=== PATIENT | male | born 1930 | race Caucasian/White ===

== ENCOUNTER → 2016-02-26 | Outpatient (REF) | payer MEDICARE, BC | LOC: M LAB REF 15:59 | PROVIDERS: ATTEND Emergency Medicine | DX: R19.7 Diarrhea, unspecified (principal) ==

== ENCOUNTER → 2016-03-05 | Outpatient (REF) | payer MEDICARE, BC ==
[2016-03-05 11:43] LABS: BASO % 0.4 % (0.0-1.0); EOS # 0.2 K/mm3 (0.0-0.50); EOS % 3.2 % (0.0-3.0); LARGE UNSTAINED CELL # 0.2 K/mm3 (0.0-0.4); LARGE UNSTAINED CELL % 2.9 % (0.0-4.0); LYMPH # 1.3 K/mm3 (1.5-4.5); LYMPH % 21.3 % (24.0-44.0); MEAN CORPUSCULAR VOLUME 94.2 fl (80.0-96.0); MONO # 0.4 K/mm3 (0.0-0.8); MONO % 6.4 % (0.0-5.0); NEUTROPHILS # 3.9 K/mm3 (1.8-7.7); NEUTROPHILS % 65.8 % (36.0-66.0); PLATELET COUNT, AUTOMATED 178 k/mm3 (150-450); RED CELL DISTRIBUTION WIDTH 13.4 % (11.5-14.5); WHITE BLOOD COUNT 5.9 K/mm3 (4.0-10.0)
[2016-03-05 12:19] LABS: ALBUMIN 3.4 GM/DL (3.2-5.2); ALBUMIN/GLOBULIN RATIO 1.17 (1.00-1.93); ALKALINE PHOSPHATASE 90 U/L (45-117); ALT/SGPT 35 U/L (12-78); ANION GAP 11 MEQ/L (8-16); AST/SGOT 26 U/L (15-37); BILIRUBIN,TOTAL 0.3 MG/DL (0.2-1.0); BLOOD UREA NITROGEN 29 MG/DL (7-18); CALCIUM LEVEL 8.6 MG/DL (8.8-10.2); CARBON DIOXIDE LEVEL 22 MEQ/L (21-32); CHLORIDE LEVEL 113 MEQ/L (98-107); CREATININE FOR GFR 1.74 MG/DL (0.70-1.30); GLOMERULAR FILTRATION RATE 39.8 (>35); GLUCOSE, FASTING 120 MG/DL (83-110); POTASSIUM SERUM 4.3 MEQ/L (3.5-5.1); SODIUM LEVEL 146 MEQ/L (136-145); TOTAL PROTEIN 6.3 GM/DL (6.4-8.2)
[2016-03-05 15:20] LABS: PERCENT SATURATION 44.4 % (19.7-37.4); TOTAL IRON BINDING CAPACITY 205 UG/DL (250-450)
[2016-03-05 16:01] LABS: FOLATE > 24.0 NG/ML; VITAMIN B12 LEVEL 293 PG/ML
== END ==
LOC: M SFHCPLAZ 10:17
PROVIDERS: ATTEND Internal Medicine Infectious Disease
DX: D64.9 Anemia, unspecified (principal); A04.7 Enterocolitis due to Clostridium difficile
CPT/HCPCS: 36415; 80053; 82607; 82746; 83550; 85025; 86140; G0463

== ENCOUNTER → 2016-04-10 | Outpatient (REF) | payer MEDICARE, BC | LOC: M LAB REF 18:33 | PROVIDERS: ATTEND Internal Medicine Infectious Disease | DX: A04.7 Enterocolitis due to Clostridium difficile (principal) | CPT/HCPCS: 87493; G0463 ==

== ENCOUNTER → 2016-04-14 | Outpatient (REF) | payer MEDICARE, BC | LOC: M SFHCPLAZ 15:04 | PROVIDERS: ATTEND Internal Medicine Infectious Disease | DX: A04.7 Enterocolitis due to Clostridium difficile (principal) ==

== ENCOUNTER → 2016-04-22 | Outpatient (REF) | payer MEDICARE, BC ==
[2016-04-22 12:22] LABS: ALBUMIN 3.5 GM/DL (3.2-5.2); ALBUMIN/GLOBULIN RATIO 1.21 (1.00-1.93); BILIRUBIN,TOTAL 0.5 MG/DL (0.2-1.0); CALCIUM LEVEL 8.4 MG/DL (8.8-10.2); CREATININE FOR GFR 1.56 MG/DL (0.70-1.30); FREE T4 1.18 NG/DL (0.76-1.46); GLOMERULAR FILTRATION RATE 45.1 (>35); POTASSIUM SERUM 4.2 MEQ/L (3.5-5.1); TOTAL PROTEIN 6.4 GM/DL (6.4-8.2)
== END ==
LOC: M LABDRAW1 11:31
PROVIDERS: ATTEND Emergency Medicine
DX: E03.9 Hypothyroidism, unspecified (principal); E78.2 Mixed hyperlipidemia

== ENCOUNTER → 2016-05-12 | Outpatient (REF) | payer MEDICARE, BC | LOC: M SFHCPLAZ 14:08 | PROVIDERS: ATTEND Internal Medicine Infectious Disease | DX: A04.7 Enterocolitis due to Clostridium difficile (principal) ==

== ENCOUNTER → 2016-06-11 | Outpatient (CLI) | payer MEDICARE, BC ==
[~2016-06-11] VITALS: Ht 172.7 cm; Wt 75.7 kg
[~2016-06-11] MED LIST: ASPI1TAB PO; CALC1CAP31 PO; FECAL MICROBIOTA PREPARATION 250 ML BTL (J3590) XX ONE; FINA5TAB2 PO; FLOM5CAP PO; GERITAB9 PO; LEVO75TA4 PO; LIDOCAINE 2% INJ 100 MG/5 ML SDV (FOR ANES.) As Ordered ONE; META58.6 PO; METO-207 PO; METO50TA2 PO; NITR4TASL SL; NS 1,000 ML IV SCH; OMEG100011 PO; OMEP20CA3 PO; PROPOFOL 200 MG/20 ML VIAL As Ordered ONE; SIMV40TA2 PO; VANC250C2 PO
--- NOTE | 2016-06-11 10:16 | ROOR ---
Patient Name: Gerardo King Procedure Date: 06/11/2016 9:52 AM Date of : 1930 Age: 86 Room: [facility] Gender: Male Note Status: Finalized Procedure: Colonoscopy to Cecum + Fecal Stool Transplant Indications: Fecal transplant for treatment of Clostridium difficile diarrhea Providers: Jona Osman MD Referring MD: ERASTO CUEVA MD Requesting Provider: Medicines: Monitored Anesthesia Care Complications: No immediate complications. Procedure: Pre-Anesthesia Assessment: - The heart rate, respiratory rate, oxygen saturations, blood pressure, adequacy of pulmonary ventilation, and response to care were monitored throughout the procedure. The Colonoscope was introduced through the anus and advanced to the cecum, identified by appendiceal orifice and ileocecal valve. The colonoscopy was performed without difficulty. The patient tolerated the procedure well. The quality of the bowel preparation was excellent. Findings: The perianal and digital rectal examinations were normal. Non-bleeding internal hemorrhoids were found during retroflexion. The hemorrhoids were small and Grade I (internal hemorrhoids that do not prolapse). Scattered small-mouthed diverticula were found in the recto-sigmoid colon, sigmoid colon and descending colon. The exam was otherwise without abnormality on direct and retroflexion views. Fecal Microbiota Transplant (Bacteriotherapy): Donor stool was prepared as per protocol. Approximately 250 mL of the emulsified donor stool was instilled in the cecum. A detailed colonoscopic exam could not be performed upon scope withdrawal secondary to limited visibility from the instilled stool. The exam was otherwise without abnormality on direct and retroflexion views. Impression: - Non-bleeding internal hemorrhoids. - Diverticulosis in the recto-sigmoid colon, in the sigmoid colon and in the descending colon. - The examination was otherwise normal on direct and retroflexion views. - The examination was otherwise normal on direct and retroflexion views. - Fecal Microbiota Transplant (Bacteriotherapy) performed in the cecum. - No specimens collected. - The exam was otherwise normal to the cecum. Recommendation: - Patient has a contact number available for emergencies. The signs and symptoms of potential delayed complications were discussed with the patient. Return to normal activities tomorrow. Written discharge instructions were provided to the patient. - Resume previous diet. - Continue present medications. - Return to referring physician. - The findings and recommendations were discussed with the patient's family. Jona Osman MD Jona Osman MD 06/11/2016 10:15:54 AM This report has been signed electronically. Number of Addenda: 0 Note Initiated On: 06/11/2016 9:52 AM Estimated Blood Loss: Estimated blood loss: none.
[2016-06-11 10:31] VITALS: BP 138/65
== END | disposition home or self-care (01) ==
LOC: M OPP 07:47
PROVIDERS: ATTEND Internal Medicine Gastroenterology
DX: A04.7 Enterocolitis due to Clostridium difficile (principal); K64.0 First degree hemorrhoids; K57.30 Diverticulosis of large intestine without perforation or abscess without bleeding; I25.10 Atherosclerotic heart disease of native coronary artery without angina pectoris; I10 Essential (primary) hypertension; K21.9 Gastro-esophageal reflux disease without esophagitis; L40.9 Psoriasis, unspecified; G47.30 Sleep apnea, unspecified; Z79.899 Other long term (current) drug therapy; Z79.82 Long term (current) use of aspirin; Z95.5 Presence of coronary angioplasty implant and graft
CPT/HCPCS: 45378; 99156; G0455

== ENCOUNTER → 2016-10-30 | Outpatient (REF) | payer MEDICARE, BC ==
[~2016-10-30] MED LIST changes: -FECAL MICROBIOTA PREPARATION 250 ML BTL (J3590) XX ONE; -LIDOCAINE 2% INJ 100 MG/5 ML SDV (FOR ANES.) As Ordered ONE; -METO-207 PO; +METO1TAB7 PO; -METO50TA2 PO; +METO50TA7 PO; -NS 1,000 ML IV SCH; -PROPOFOL 200 MG/20 ML VIAL As Ordered ONE
[2016-10-30 09:24] LABS: BASO % 0.7 % (0.0-1.0); EOS % 4.1 % (0.0-3.0); LARGE UNSTAINED CELL % 2.6 % (0.0-4.0); MEAN CORPUSCULAR HEMOGLOBIN 32.8 pg (27.0-33.0); MEAN CORPUSCULAR HGB CONC 34.7 g/dl (32.0-36.5); MEAN CORPUSCULAR VOLUME 94.6 fl (80.0-96.0); MONO % 7.5 % (0.0-5.0); PLATELET COUNT, AUTOMATED 183 k/mm3 (150-450); RED CELL DISTRIBUTION WIDTH 13.2 % (11.5-14.5); WHITE BLOOD COUNT 5.6 K/mm3 (4.0-10.0)
[2016-10-30 09:25] LABS: EOS # 0.2 K/mm3 (0.0-0.50); LARGE UNSTAINED CELL # 0.2 K/mm3 (0.0-0.4); LYMPH # 1.4 K/mm3 (1.5-4.5); MONO # 0.4 K/mm3 (0.0-0.8); NEUTROPHILS # 3.4 K/mm3 (1.8-7.7)
[2016-10-30 12:14] LABS: BILIRUBIN,TOTAL 0.6 MG/DL (0.2-1.0); CALCIUM LEVEL 9.1 MG/DL (8.8-10.2); CREATININE FOR GFR 1.87 MG/DL (0.70-1.30); GLOMERULAR FILTRATION RATE 36.6 (>35); POTASSIUM SERUM 4.3 MEQ/L (3.5-5.1)
[2016-10-30 12:15] LABS: ALBUMIN 3.5 GM/DL (3.2-5.2); ALBUMIN/GLOBULIN RATIO 1.09 (1.00-1.93); FREE T4 1.37 NG/DL (0.76-1.46); TOTAL PROTEIN 6.7 GM/DL (6.4-8.2)
== END ==
LOC: M LABDRAW1 08:20
PROVIDERS: ATTEND Emergency Medicine
DX: E78.2 Mixed hyperlipidemia (principal); E03.9 Hypothyroidism, unspecified; E55.9 Vitamin D deficiency, unspecified; D64.9 Anemia, unspecified

== ENCOUNTER → 2017-06-26 | Outpatient (REF) | payer MEDICARE, BC ==
[2017-06-29 14:28] LABS: TOTAL PROTEIN 7.2 GM/DL (6.4-8.2)
[2017-07-01 11:21] LABS: ALBUMIN 4.16 GM/DL (3.29-5.55); ALBUMIN % 57.8 % (55.8-66.1); ALPHA-1-GLOBULIN % 3.8 % (2.9-4.9); ALPHA-1-GLOBULINS 0.27 GM/DL (0.17-0.41); ALPHA-2-GLOBULINS 1.03 GM/DL (0.42-0.99); ALPHA-2-GLOBULINS % 14.3 % (7.1-11.8); BETA-1-GLOBULINS 0.39 GM/DL (0.28-0.60); BETA-1-GLOBULINS % 5.4 % (4.7-7.2); BETA-2-GLOBULINS 0.42 GM/DL (0.19-0.55); BETA-2-GLOBULINS % 5.8 % (3.2-6.5); GAMMA GLOBULIN % 12.9 % (11.1-18.8); GAMMA GLOBULINS 0.93 GM/DL (0.65-1.58)
== END ==
LOC: M LAB REF 13:33
DX: N18.9 Chronic kidney disease, unspecified (principal); D63.1 Anemia in chronic kidney disease
CPT/HCPCS: 84165

== ENCOUNTER 2017-07-10 19:20 | Emergency (ER) | payer MEDICARE, BC ==
[2017-07-10] MEDS: ACETAMINOPH W/CODEINE #3 TAB UD PO (23:56)
== END 2017-07-10 23:55 | disposition home or self-care (01) ==
LOC: M ED 23:55
DX: S22.31XA Fracture of one rib, right side, initial encounter for closed fracture (principal); W19.XXXA Unspecified fall, initial encounter; Y92.9 Unspecified place or not applicable; Y93.9 Activity, unspecified; Y99.9 Unspecified external cause status; I10 Essential (primary) hypertension; E03.9 Hypothyroidism, unspecified; Z79.82 Long term (current) use of aspirin; Z79.899 Other long term (current) drug therapy
CPT/HCPCS: 71101

== ENCOUNTER → 2017-07-21 | Outpatient (CLI) | payer MEDICARE, BC | LOC: M ADAMS 11:35 | DX: S20.221A Contusion of right back wall of thorax, initial encounter (principal); X58.XXXA Exposure to other specified factors, initial encounter; Y92.89 Other specified places as the place of occurrence of the external cause; Y93.9 Activity, unspecified; Y99.9 Unspecified external cause status | CPT/HCPCS: 71101 ==

== ENCOUNTER → 2017-10-11 | Outpatient (CLI) | payer MEDICARE, BC | LOC: M ADAMS 13:37 | DX: M25.511 Pain in right shoulder (principal) | CPT/HCPCS: 73010 ==

== ENCOUNTER 2018-02-01 14:28 | Emergency (ER) | payer MEDICARE, BC ==
[~2018-02-01] VITALS: Ht 172.7 cm; Wt 72.7 kg
[~2018-02-01 14:28] MED LIST changes: +ACET30TAB PO; +FLOM0.4C39 PO; -FLOM5CAP PO
[2018-02-01] MEDS ORDERED: LIDOCAINE 2% MDV 20 ML VIAL SC ONE (15:15)
[2018-02-01] MEDS ORDERED: KEFL500C17 PO (16:03)
[2018-02-01 16:11] VITALS: BP 140/66
== END 2018-02-01 16:14 | disposition home or self-care (01) ==
LOC: M ED 14:28
DX: S00.83XA Contusion of other part of head, initial encounter (principal); W22.8XXA Striking against or struck by other objects, initial encounter

== ENCOUNTER 2018-02-21 06:44 | Emergency (ER) | payer MEDICARE, BC ==
[~2018-02-21] VITALS: Ht 172.7 cm; Wt 74.9 kg
[~2018-02-21 06:44] MED LIST changes: +KEFL500C17 PO
[2018-02-21] MEDS ORDERED: META48.54 PO (07:11)
[2018-02-21 07:44] LABS: BASO # 0.1 10^3/uL (0.0-0.2); BASO % 0.7 % (0.0-1.0); EOS # 0.3 10^3/uL (0.0-0.50); EOS % 4.4 % (0.0-3.0); HEMATOCRIT 37.4 % (42.0-52.0); HEMOGLOBIN 12.6 g/dl (13.5-17.5); LYMPH # 1.7 10^3/uL (1.5-4.5); LYMPH % 22.1 % (24.0-44.0); MEAN CORPUSCULAR HEMOGLOBIN 32.6 pg (27.0-33.0); MEAN CORPUSCULAR HGB CONC 33.7 g/dl (32.0-36.5); MEAN CORPUSCULAR VOLUME 96.6 fl (80.0-96.0); MONO # 0.7 10^3/uL (0.0-0.8); MONO % 9.2 % (0.0-5.0); NEUTROPHILS # 4.9 10^3/uL (1.8-7.7); NEUTROPHILS % 63.2 % (36.0-66.0); PLATELET COUNT, AUTOMATED 197 10^3/uL (150-450); RED BLOOD COUNT 3.87 10^6/uL (4.30-6.10); WHITE BLOOD COUNT 7.7 10^3/uL (4.0-10.0)
[2018-02-21] MEDS ORDERED: MECLIZINE 25 MG TABLET PO ONE (07:45)
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
[2018-02-21 07:56] LABS: BLOOD UREA NITROGEN 31 MG/DL (7-18); CALCIUM LEVEL 8.8 MG/DL (8.8-10.2); CARBON DIOXIDE LEVEL 23 MEQ/L (21-32); CHLORIDE LEVEL 110 MEQ/L (98-107); CPK CREATINE PHOSPHOKINASE 84 U/L (39-308); CREATININE FOR GFR 1.87 MG/DL (0.70-1.30); GLOMERULAR FILTRATION RATE 36.5 (>35); GLUCOSE, FASTING 119 MG/DL (70-100); MB/CK RELATIVE INDEX 2.02 (< OR =4); SODIUM LEVEL 142 MEQ/L (136-145); TROPONIN I < 0.02 NG/ML (< 0.10)
[2018-02-21] MEDS ORDERED: METOPROLOL SUCC (TopROL XL) 50MG **XL** TAB PO ONE (08:00)
[2018-02-21] MEDS ORDERED: ASPIRIN 81 MG CHEW TABLET PO ONE (08:00)
[2018-02-21 08:06] LABS: INR 1.03; PROTHROMBIN TIME 13.6 SECONDS (12.1-14.4)
[2018-02-21 08:07] LABS: PARTIAL THROMBOPLASTIN TIME 34.2 SECONDS (25.4-37.6)
--- NOTE | 2018-02-21 08:29 | REP ---
Clinical: Altered mental status. Cerebrovascular accident . Comparison: 07/21/2017 . Findings: The mediastinum and cardiac silhouette are stable and within normal limits for portable technique. The lung still demonstrate chronic stable changes without acute consolidation, effusion, or pneumothorax. Skeletal structures are intact. Impression: No acute cardiopulmonary process appreciated. Electronically Signed by Roque Irvin MD 02/21/2018 08:20 A
--- NOTE | 2018-02-21 10:41 | REP ---
Clinical: Possible cerebellar infarction. Technique: Standard noncontrast MRI of the brain sequencing. Findings: Age-related atrophy and microvascular ischemic changes including periventricular leukomalacia as evidenced by increase signal intensity foci on T2-weighted sequences in the periventricular and scattered white matter distribution. No evidence for acute intracranial hemorrhage, mass/mass effect, or infarction. No extra-axial collection. Ventricles are symmetric and normal. Orbits are unremarkable. Sinuses are within normal limits. Impression: Atrophy and microvascular ischemic changes. No evidence for acute intracranial process. No obvious acute infarction. Electronically Signed by Roque Irvin MD 02/21/2018 10:32 A
--- NOTE | 2018-02-21 10:42 | REP ---
Clinical: Possible cerebellar infarction Comparison: None Technique: Axial 3-D [id number] noncontrast source images with 3-D multiplanar re-formations. Findings: Vasculature to the bilateral hemispheres including posterior fossa and cerebellum appears symmetric and normal without areas of attenuation to suggest occlusion or stenosis. No evidence for arteriovenous malformation or aneurysm. No obvious abnormality. Impression: Essentially normal MRA of the brain. Electronically Signed by Roque Irvin MD 02/21/2018 10:34 A
[2018-02-21 11:00] VITALS: BP 151/62
[2018-02-21] MEDS ORDERED: MECL-68 PO (11:02)
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
== END 2018-02-21 11:27 | disposition home or self-care (01) ==
LOC: M ED 06:44
DX: H83.09 Labyrinthitis, unspecified ear (principal); N18.3 Chronic kidney disease, stage 3 (moderate); M06.9 Rheumatoid arthritis, unspecified; I13.10 Hypertensive heart and chronic kidney disease without heart failure, with stage 1 through stage 4 chronic kidney disease, or unspecified chronic kidney disease; I25.10 Atherosclerotic heart disease of native coronary artery without angina pectoris; E78.5 Hyperlipidemia, unspecified; K21.9 Gastro-esophageal reflux disease without esophagitis; N40.0 Benign prostatic hyperplasia without lower urinary tract symptoms; G47.33 Obstructive sleep apnea (adult) (pediatric); Z86.19 Personal history of other infectious and parasitic diseases; E07.9 Disorder of thyroid, unspecified; Z95.5 Presence of coronary angioplasty implant and graft; Z79.899 Other long term (current) drug therapy; Z79.82 Long term (current) use of aspirin

== ENCOUNTER → 2018-03-22 | Outpatient (REF) | payer MEDICARE, BC ==
[~2018-03-22] MED LIST changes: +MECL-68 PO; +META48.54 PO
[2018-03-22 16:57] LABS: FREE T4 1.19 NG/DL (0.76-1.46); THYROID STIMULATING HORMONE 2.11 uIU/ML (0.358-3.740); TOTAL 25(OH) VITAMIN D 33.5 NG/ML (30.0-100.0)
[2018-03-22 16:58] LABS: FOLATE 20.3 NG/ML
== END ==
LOC: M LABDRAW1 15:32
PROVIDERS: ATTEND Family Medicine
DX: E55.9 Vitamin D deficiency, unspecified (principal); D64.9 Anemia, unspecified

== ENCOUNTER → 2018-08-23 | Outpatient (CLI) | payer MEDICARE, BC ==
[~2018-08-23] MED LIST changes: +ACET-716 PO; -ACET30TAB PO; -ASPI1TAB PO; +ASPI81TA26 PO; -MECL-68 PO; +MECL1TAB31 PO; +OMEP1CAP73 PO; -OMEP20CA3 PO; -SIMV40TA2 PO; +SIMV40TA20 PO; -VANC250C2 PO; +VANC250C3 PO
--- NOTE | 2018-08-23 12:47 | REP ---
Clinical: Acute upper respiratory tract infection. Technique: PA and lateral. Comparison: 02/21/2018, 05/29/2011. Findings: Mediastinum and cardiac silhouette are within normal limits and stable. Lung still demonstrate chronic interstitial changes along with scattered calcified granulomata. No consolidation. No effusions. No pneumothorax. Skeletal structures demonstrate osteopenia and degenerative changes. Impression: Chronic stable changes including scattered calcified granulomata similar to prior examinations. No obvious acute consolidation or effusion. Electronically Signed by Roque Irvin MD 08/23/2018 12:39 P
== END ==
LOC: M SMT 12:00
PROVIDERS: ATTEND Family Medicine
DX: J06.9 Acute upper respiratory infection, unspecified (principal); J84.10 Pulmonary fibrosis, unspecified; M85.80 Other specified disorders of bone density and structure, unspecified site; M19.90 Unspecified osteoarthritis, unspecified site

== ENCOUNTER → 2018-10-18 | Outpatient (REF) | payer MEDICARE, BC ==
[~2018-10-18] MED LIST changes: +MECL-68 PO; -MECL1TAB31 PO; -OMEP1CAP73 PO; +OMEP20CA4 PO; +SIMV40TA2 PO; -SIMV40TA20 PO
[2018-10-18 11:59] LABS: BASO % 0.6 % (0.0-1.0); EOS # 0.4 10^3/uL (0.0-0.50); EOS % 6.4 % (0.0-3.0); HEMATOCRIT 34.2 % (42.0-52.0); HEMOGLOBIN 11.3 g/dl (13.5-17.5); LYMPH # 1.5 10^3/uL (1.5-4.5); LYMPH % 22.9 % (24.0-44.0); MEAN CORPUSCULAR HEMOGLOBIN 32.8 pg (27.0-33.0); MEAN CORPUSCULAR VOLUME 99.1 fl (80.0-96.0); MONO # 0.6 10^3/uL (0.0-0.8); NEUTROPHILS # 3.9 10^3/uL (1.8-7.7); NEUTROPHILS % 60.8 % (36.0-66.0); PLATELET COUNT, AUTOMATED 171 10^3/uL (150-450); RED BLOOD COUNT 3.45 10^6/uL (4.30-6.10); WHITE BLOOD COUNT 6.5 10^3/uL (4.0-10.0)
[2018-10-18 12:07] LABS: ALBUMIN 3.4 GM/DL (3.2-5.2); BILIRUBIN,TOTAL 0.4 MG/DL (0.2-1.0); CALCIUM LEVEL 9.1 MG/DL (8.8-10.2); CREATININE FOR GFR 1.8 MG/DL (0.70-1.30); FREE T4 1.31 NG/DL (0.76-1.46); GLOMERULAR FILTRATION RATE 38.1 (>35); POTASSIUM SERUM 4.3 MEQ/L (3.5-5.1); THYROID STIMULATING HORMONE 3.09 uIU/ML (0.358-3.740); TOTAL PROTEIN 6.8 GM/DL (6.4-8.2)
== END ==
LOC: M LABDRAW1 11:30
PROVIDERS: ATTEND Physician Assistant
DX: K21.9 Gastro-esophageal reflux disease without esophagitis (principal); E78.2 Mixed hyperlipidemia; E03.9 Hypothyroidism, unspecified

== ENCOUNTER → 2019-04-25 | Outpatient (REF) | payer MEDICARE, BC ==
[~2019-04-25] MED LIST changes: -MECL-68 PO; +MECL1TAB31 PO; +OMEP1CAP73 PO; -OMEP20CA4 PO; -SIMV40TA2 PO; +SIMV40TA20 PO
[2019-04-25 11:27] LABS: BASO % 0.7 % (0.0-1.0); EOS # 0.3 10^3/uL (0.0-0.5); EOS % 5.4 % (0.0-3.0); HEMOGLOBIN 11.5 g/dl (13.5-17.5); LYMPH # 1.5 10^3/uL (1.5-5.0); LYMPH % 23.8 % (24.0-44.0); MEAN CORPUSCULAR HEMOGLOBIN 31.9 pg (27.0-33.0); MEAN CORPUSCULAR HGB CONC 32.9 g/dl (32.0-36.5); MEAN CORPUSCULAR VOLUME 97.2 fl (80.0-96.0); MONO # 0.6 10^3/uL (0.0-0.8); MONO % 9.5 % (0.0-5.0); NEUTROPHILS # 3.7 10^3/uL (1.5-8.5); NEUTROPHILS % 60.3 % (36.0-66.0); PLATELET COUNT, AUTOMATED 185 10^3/uL (150-450); WHITE BLOOD COUNT 6.1 10^3/uL (4.0-10.0)
[2019-04-25 11:54] LABS: ALBUMIN 3.6 GM/DL (3.2-5.2); BILIRUBIN,TOTAL 0.4 MG/DL (0.2-1.0); CHOLESTEROL RISK RATIO 3.6 (<5); CREATININE FOR GFR 1.8 MG/DL (0.70-1.30); POTASSIUM SERUM 4.1 MEQ/L (3.5-5.1); TOTAL PROTEIN 6.8 GM/DL (6.4-8.2)
[2019-04-26 14:17] LABS: PSA TOTAL 0.1 ng/mL (0.0-4.0)
== END ==
LOC: M LABDRAW1 08:43
PROVIDERS: ATTEND Family Medicine
DX: I25.10 Atherosclerotic heart disease of native coronary artery without angina pectoris (principal); E03.9 Hypothyroidism, unspecified; N18.3 Chronic kidney disease, stage 3 (moderate); N40.0 Benign prostatic hyperplasia without lower urinary tract symptoms

== ENCOUNTER → 2019-07-29 | Outpatient (CLI) | payer MEDICARE, BC ==
[2019-07-29 09:41] LABS: BASO # 0.1 10^3/uL (0.0-0.2); BASO % 0.9 % (0.0-1.0); EOS # 0.3 10^3/uL (0.0-0.5); EOS % 4.8 % (0.0-3.0); HEMATOCRIT 34.3 % (42.0-52.0); HEMOGLOBIN 11.6 g/dl (13.5-17.5); LYMPH # 1.8 10^3/uL (1.5-5.0); LYMPH % 27.8 % (24.0-44.0); MEAN CORPUSCULAR HEMOGLOBIN 32.9 pg (27.0-33.0); MEAN CORPUSCULAR HGB CONC 33.8 g/dl (32.0-36.5); MEAN CORPUSCULAR VOLUME 97.2 fl (80.0-96.0); MONO # 0.7 10^3/uL (0.0-0.8); MONO % 11.3 % (0.0-5.0); NEUTROPHILS # 3.5 10^3/uL (1.5-8.5); NEUTROPHILS % 54.9 % (36.0-66.0); PLATELET COUNT, AUTOMATED 218 10^3/uL (150-450); RED BLOOD COUNT 3.53 10^6/uL (4.30-6.10); WHITE BLOOD COUNT 6.4 10^3/uL (4.0-10.0)
[2019-07-29 10:16] LABS: ALBUMIN 3.3 GM/DL (3.2-5.2); BILIRUBIN,TOTAL 0.3 MG/DL (0.2-1.0); CALCIUM LEVEL 8.9 MG/DL (8.8-10.2); CHOLESTEROL RISK RATIO 3.25 (<5); CREATININE FOR GFR 1.93 MG/DL (0.70-1.30); FREE T4 1.27 NG/DL (0.76-1.46); GLOMERULAR FILTRATION RATE 35.1 (>35); POTASSIUM SERUM 4.6 MEQ/L (3.5-5.1); THYROID STIMULATING HORMONE 2.57 uIU/ML (0.358-3.740); TOTAL PROTEIN 6.9 GM/DL (6.4-8.2)
[2019-07-29 10:19] LABS: TOTAL 25(OH) VITAMIN D 32.6 NG/ML (30.0-100.0)
== END ==
LOC: M PLALAB 08:01
PROVIDERS: ATTEND Physician Assistant
DX: I25.10 Atherosclerotic heart disease of native coronary artery without angina pectoris (principal)